=== PATIENT | female | born 1980 | race American Indian/Alaskan Native ===

== ENCOUNTER 2016-10-17 15:17 | Emergency (ER) | payer MEDICAID ==
[2016-10-17 15:56] VITALS: BP 114/68
[2016-10-17 16:18] LABS: Basophils % (Auto) 0.2 % (0.0-1.8); Eosinophils % (Auto) 0.3 % (0.0-4.3); Hematocrit 32.6 % (30.3-42.9); Hemoglobin 10.7 gm/dl (10.1-14.3); Mean Corpuscular HGB Conc 33 % (30-34); Mean Corpuscular Hemoglobin 26 pg (28-32); Mean Corpuscular Volume 80 fl (79-97); Platelet Count 262 K/mm3 (140-440); Red Blood Count 4.07 M/mm3 (3.65-5.03); Red Cell Distribution Width 16.2 % (13.2-15.2); White Blood Count 9.6 K/mm3 (4.5-11.0)
[2016-10-17 16:30] LABS: Anion Gap 19 mmol/L; BUN/Creatinine Ratio 16.66; Blood Urea Nitrogen 10 mg/dL (7-17); Calcium 9.2 mg/dL (8.4-10.2); Carbon Dioxide 19 mmol/L (22-30); Chloride 101.4 mmol/L (98-107); Glucose 128 mg/dL (65-100); Potassium 3.3 mmol/L (3.6-5.0); Sodium 136 mmol/L (137-145)
--- NOTE | 2016-10-17 16:45 | Emergency Department Report ---
Entered by BAILEY DIAZ, acting as scribe for BALAJI VEGAS NP. Chief Complaint: Nausea/Vomiting/Diarrhea Stated Complaint: DEHYDRATED Time Seen by Provider: 10/17/16 16:18 - HPI History of Present Illness: 13.5 weeks patient is non-toxic, non ill appearing, in no acute distress with c/o N/V and weakness. Her last OB appointment was last week, and was told her urine was dark and concentrated. She states her baby was fine at her last OB appointment. Patient has been taking zofran during day time and phenergan at night with no relief. Patient reports that she can't keep liquids down. Patient has similar symptoms with first , but worse this . reports cramping pelvic pain denies vaginal bleeding - ROS Review of Systems: Patient reports nausea and vomiting. Reports cramping pelvic pain Patient denies chest pain and SOB. Patient denies vaginal bleeding - Exam Vital Signs: Vital Signs 10/17/16 15:49 Temperature 99 F Pulse Rate 95 H Respiratory 18 Rate Blood Pressure 114/68 O2 Sat by Pulse 100 Oximetry Physical Exam: Constitutional: Non toxic appearing, NAD. Cardiovascular: Normal rate and rhythm with normal S1/S2 sounds. Respiratory: No respiratory distress. Lung sounds clear to auscultation bilaterally. Abdomen: Abdomen is non-distended, soft with no tenderness to palpation in all quadrants. No abdominal bruit. No epigastric pain. Negative [place] Tenderness. Negative [place] sign. MSE screening note: Focused history and physical exam performed. Due to findings the following was ordered: CBC, BMP, HCG qualitative, US OB and transvaginal, UA, was ordered for patient prior to my visit. ED Medical Decision Making - Lab Data Result diagrams: 10/17/16 16:02 10/17/16 16:02 ED Disposition for MSE Condition: Stable This documentation as recorded by the scribe,BAILEY DIAZ,accurately reflects the service I personally performed and the decisions made by me,BALAJI VEGAS, MARCIE.
[2016-10-17 17:34] LABS: Bilirubin,Urine NEG (Negative); Blood,Urine NEG (Negative); Ketones,Urine 20 mg/dL (Negative); Leukocyte Esterase,Urine NEG (Negative); Mucus,Urine 3+ /HPF; Nitrite,Urine NEG (Negative); Urobilinogen,Urine < 2.0 mg/dL (<2.0)
--- NOTE | 2016-10-17 19:54 | Ultrasound Report ---
FINAL REPORT PROCEDURE: US OB \T\lt; = 14 WEEKS FETUS TECHNIQUE: Real-time transabdominal sonography of the uterus, placenta, amniotic fluid, adnexa, and fetus was performed with image documentation. Measurements were obtained to determine age/size. M-mode Doppler was used to document heartbeat. CPT 85348 HISTORY: n/v cramping COMPARISON: No prior studies are available for comparison. FINDINGS: There is a single living intrauterine gestation with a heart rate of 160 beats per minute. The amount of amniotic fluid appears normal. Shape of the gestational sac appears normal. No evidence of subchorionic hemorrhage. [place]-rump length measurement is 7 centimeters corresponding to an age of 13 weeks 1 day. Biparietal diameter 2.3 centimeter equals 13 weeks 6 days Head circumference 9.4 centimeter equal 14 week 2 day Abdominal circumference 7.8 centimeter equal 14 week 1 day Placenta appears to be forming anteriorly without evidence of abruption. Fetus currently too small to accurately assess anatomy. No gross abnormality is seen. The amount of amniotic fluid appears normal. No free fluid is seen in the cul-de-sac. Right and left ovaries are unremarkable. No abnormal adnexal masses are identified. Right ovary measures 2.4 x 1.3 x 0.7 centimeters. The left ovary measures 2.0 x 1.0 x 1.8 centimeters. IMPRESSION: Single living intrauterine gestation visualized. By average sonographic measurements the estimated age is 13 weeks 6 days. This places the EDC at 04/18/2017 1.5 weeks. Fetus currently too small accurately assess anatomy. No gross abnormality is seen. Consider follow-up exam at 18-20 weeks to evaluate anatomy. Ovaries are visualized and show no abnormalities.
--- NOTE | 2016-10-22 16:37 | ED Elopement Review ---
ED Pt Elopement review - Results review Lab results: Laboratory Tests 10/17/16 10/17/16 10/17/16 16:02 16:02 16:02 WBC 9.6 RBC 4.07 Hgb 10.7 Hct 32.6 MCV 80 MCH 26 L MCHC 33 RDW 16.2 H Plt Count 262 Lymph % (Auto) 17.4 [place] % (Auto) 6.1 Eos % (Auto) 0.3 Baso % (Auto) 0.2 Lymph # 1.7 [place] # 0.6 Eos # 0.0 Baso # 0.0 Seg Neutrophils % 76.0 H Seg Neutrophils # 7.3 Sodium 136 L Potassium 3.3 L Chloride 101.4 Carbon Dioxide 19 L Anion Gap 19 BUN 10 Creatinine 0.6 L Estimated GFR > 60 BUN/Creatinine Ratio 16.66 Glucose 128 H Calcium 9.2 HCG, Quant 70699 H Urine Color Urine Turbidity Urine pH Ur Specific [place] Urine Protein Urine Glucose (UA) Urine Ketones Urine Blood Urine Nitrite Urine Bilirubin Urine Urobilinogen Ur Leukocyte Esterase Urine WBC (Auto) Urine RBC (Auto) U Epithel Cells (Auto) Urine Mucus 10/17/16 16:33 WBC RBC Hgb Hct MCV MCH MCHC RDW Plt Count Lymph % (Auto) [place] % (Auto) Eos % (Auto) Baso % (Auto) Lymph # [place] # Eos # Baso # Seg Neutrophils % Seg Neutrophils # Sodium Potassium Chloride Carbon Dioxide Anion Gap BUN Creatinine Estimated GFR BUN/Creatinine Ratio Glucose Calcium HCG, Quant Urine Color Yellow Urine Turbidity Clear Urine pH 5.0 Ur Specific [place] 1.036 H Urine Protein 30 mg/dl Urine Glucose (UA) 150 Urine Ketones 20 Urine Blood Neg Urine Nitrite Neg Urine Bilirubin Neg Urine Urobilinogen < 2.0 Ur Leukocyte Esterase Neg Urine WBC (Auto) 1.0 Urine RBC (Auto) 7.0 U Epithel Cells (Auto) 1.0 Urine Mucus 3+ hypokalemia, ua - dehydration - Call Back decision Pt Call Back Decision: Call pt to return to ED [facility]
== END 2016-10-18 00:04 | disposition left against medical advice (07) ==
LOC: ED 15:17
DX: O21.9 Vomiting of pregnancy, unspecified (principal); O26.891 Other specified pregnancy related conditions, first trimester; R53.1 Weakness; R11.0 Nausea; Z53.21 Procedure and treatment not carried out due to patient leaving prior to being seen by health care provider
CPT/HCPCS: 36415; 76801; 80048; 81001; 84702; 85025

== ENCOUNTER 2016-10-18 10:16 | Inpatient (IN) | payer MEDICAID ==
[2016-10-18] MEDS ORDERED: ZOFRAN IV PRN (10:23)
[2016-10-18] MEDS: PHENERGAN PR SCH ×3 (12:55→23:26)
[2016-10-18] MEDS: REGLAN IV SCH ×3 (12:55→23:25)
[2016-10-18] MEDS: D5LR 1,000 ML IV SCH ×3 (12:57→20:17)
--- NOTE | 2016-10-18 13:24 | History and Physical Report ---
<GONZALO SPICER Shanice - Last Filed: 10/18/16 13:20> History of Present Illness Date of examination: 10/18/16 Date of admission: 10/18/16 12:03 Chief complaint: hyperemesis, 11lb weight loss History of present illness: EDC Calculations by LMP: 04/22/2017 Past History : 2 Term Births: 1 Premature Births: 0 Living Children: 1 Para: 1 Prev : 1 Aborta: 0 Elect. Ab: 0 Spont. Ab: 0 Ectopics: 0 # 1 Delivery date: 07/2012 Weeks Gestation: term Delivery type: Anesthesia type: epidural Delivery location: [facility] Infant Sex: Male weight: 7-13 Comments: distress Risk Factors: Smoked Tobacco Use: Never smoker Smokeless Tobacco Use: Never Passive smoke exposure: no Drug use: no HIV high-risk behavior: low risk Caffeine use: 0 drinks per day Alcohol use: no Exercise: yes Seatbelt use: preg-employment counselor % Dietary Counseling: pn yes Past Medical History: Reviewed history from 01/04/2012 and no changes required: Negative Past Medical History Past Surgical History: Reviewed history from 11/06/2012 and no changes required: Lumpectomy--right breast benign Past Medical History Abnormal PAP: negative Social Hx: Patient is no e/t/d Infection History Hx of STD: none HIV Risk Eval: low risk Hepatitis B Risk Eval: low risk Personal hx. of genital herpes: no Partner hx. of genital herpes: no Rash, Viral, or Febrile illness since last LMP? no Varicella/Chicken Pox Status: Previous Disease Genetic History Congenital Heart Defect: Mom: no Dad: no Elton Disease: Mom: no Dad: no Thalassemia Mom: no Dad: no Neural Tube Defect Mom: no Dad: no Down's Syndrome Mom: no Dad: no Cortez-Sachs Mom: no Dad: no Sickle Cell Disease/Trait Mom: no Dad: no Hemophilia Mom: no Dad: no Muscular Dystrophy Mom: no Dad: no Cystic Fibrosis Mom: no Dad: no Jenny Chorea Mom: no Dad: no Mental Retardation Mom: no Dad: no Fragile X Mom: no Dad: no Other Genetic/Chromosomal Disorder Mom: no Dad: no Child w/other defect Mom: no Dad: no Enviromental Exposures Xray Exposure: no Medication, drug, or alcohol use since LMP: no Chemical/Other Exposure: no Exposure to Cat Liter: no Hx of Parvovirus (Fifth Disease): no Occupational Exposure to Children: none FALSECurrent Allergies: No known allergies Past History - Obstetrical History Expected Date of Delivery: 04/19/17 Actual Gestation: 13 Week(s) 6 Day(s) : 2 Para: 1 Hx # Term Pregnancies: 1 Number of Pregnancies: 0 Spontaneous Abortions: 0 Induced : 0 Number of Living Children: 1 Medications and Allergies Allergies Allergy/AdvReac Type Severity Reaction Status Date / Time No Known Allergies Allergy Unverified 10/17/16 15:49 Active Meds: Active Medications Dextrose/Lactated Ringer's (D5lr) 1,000 mls @ 500 mls/hr IV DIRECT MICHAEL Stop: 10/19/16 12:59 Last Admin: 10/18/16 12:57 Dose: 500 mls/hr Dextrose/Lactated Ringer's (D5lr) 1,000 mls @ 150 mls/hr IV DIRECT MICHAEL Metoclopramide HCl (Reglan) 10 mg IV Q6H [facility] Last Admin: 10/18/16 12:55 Dose: 10 mg Multivitamins/Iron/Calcium ( Vitamin) 1 each PO QDAY MICHAEL Ondansetron HCl (Zofran) 4 mg IV Q6H PRN PRN Reason: N/V unrelieved by Reglan Promethazine HCl (Phenergan) 25 mg [place] Q6H MICHAEL Last Admin: 10/18/16 12:55 Dose: 25 mg Review of Systems All systems: negative Constitutional: weight loss, weakness Cardiovascular: no chest pain Respiratory: no cough Gastrointestinal: nausea, vomiting, no abdominal pain - Physical Exam Breasts: Positive: normal Cardiovascular: Regular rate Lungs: Positive: Clear to auscultation, Normal air movement Abdomen: Positive: normal appearance, soft Genitourinary (Female): Positive: normal external genitalia Extremities: Positive: normal - Obstetrical FHR: auscultation normal FHR comments: Doppler in office 160's Results All other labs normal. Assessment and Plan 36y/o @ 13.6 wga admitted for hyperemesis. patient unable to tolerate food or liquids even with phenergan and zofran otd. 11lb weight loss since beginning or . Plan to admit for hyperemesis pathway, - Patient Problems (1) Hyperemesis Current Visit: Yes Status: Acute QualifierTitle: Vomiting type: V Nausea presence: with nausea Plan to address problem: hyperemesis pathway (2) 13 weeks gestation of Current Visit: Yes Status: Acute (3) Previous section Current Visit: Yes Status: Acute <AUBRIE CARBAJAL D - Last Filed: 10/18/16 20:44> History of Present Illness Date of admission: 10/18/16 12:03 Medications and Allergies Active Meds: Active Medications Dextrose/Lactated Ringer's (D5lr) 1,000 mls @ 500 mls/hr IV DIRECT MICHAEL Stop: 10/19/16 12:59 Last Admin: 10/18/16 15:16 Dose: 500 mls/hr Dextrose/Lactated Ringer's (D5lr) 1,000 mls @ 150 mls/hr IV DIRECT MICHAEL Last Admin: 10/18/16 20:17 Dose: 150 mls/hr Metoclopramide HCl (Reglan) 10 mg IV Q6H MICHAEL Last Admin: 10/18/16 18:20 Dose: 10 mg Multivitamins/Iron/Calcium ( Vitamin) 1 each PO QDAY MICHAEL Ondansetron HCl (Zofran) 4 mg IV Q6H PRN PRN Reason: N/V unrelieved by Reglan Promethazine HCl (Phenergan) 25 mg [place] Q6H MICHAEL Last Admin: 10/18/16 18:20 Dose: 25 mg - Vital Signs Vital signs: Vital Signs Temp Pulse Resp BP 99 F 72 18 97/53 10/18/16 12:45 10/18/16 12:45 10/18/16 12:45 10/18/16 12:45 Temp Pulse Resp BP Pulse Ox 99.2 F 80 18 99/50 10/18/16 16:55 10/18/16 16:55 10/18/16 16:55 10/18/16 16:55 Results Result Diagrams: 10/18/16 12:55 Abnormal lab results 10/18/16 Range/Units 12:55 Carbon Dioxide 20 L (22-30) mmol/L Creatinine 0.6 L (0.7-1.2) mg/dL All other labs normal. Assessment and Plan - Patient Problems (1) Hyperemesis Current Visit: Yes Status: Acute Qualifiers: Vomiting type: V Nausea presence: with nausea Plan to address problem: Continue hyperemesis pathway
[2016-10-18 13:28] LABS: Anion Gap 20 mmol/L; BUN/Creatinine Ratio 16.66; Blood Urea Nitrogen 10 mg/dL (7-17); Carbon Dioxide 20 mmol/L (22-30); Chloride 103.1 mmol/L (98-107); Glucose 81 mg/dL (65-100); Potassium 3.9 mmol/L (3.6-5.0); Sodium 139 mmol/L (137-145)
--- NOTE | 2016-10-18 13:29 | Admit Criteria Form ---
Admission Criteria Documentation: HYPEREMESIS GRAVIDARUM Clinical Indications for Admission to Inpatient Care ( Place 'X' for any and all applicable criteria): Admission is indicated for ANY ONE of the following (1)(2)(3) [ ]I. Suspected serious gastrointestinal pathology (eg, acute fatty liver of , pancreatitis) as indicated by ANY ONE of the following (5)(6): [ ]a) Significantly elevated serum transaminase or bilirubin (eg, 2 or 3 times normal) [ ]b) Elevated serum amylase or lipase [ ]c) Elevated serum ammonia level [ ]d) Coagulopathy (eg, elevated PT, PTT) [ ]e) Ascites [ ]f) Encephalopathy [X ]II. Inpatient admission required rather than observation care (Also use Hyperemesis Gravidarum: Observation Care as appropriate) because of ANY ONE of the following (7) : [ ]a) Hemodynamic instability develops [X ]b) Vomiting that is severe or persistent [ ]c) Severe electrolyte abnormalities requiring inpatient care [ ]d) Metabolic disorder (eg, acidosis) that is severe or persistent [ ]e) Acute renal failure [ ]f) Altered mental status or medication side effects (eg, antiemetics) that are severe or persistent [ ]g) compromise identified [ ]h) Hydatidiform mole identified [ ]i) IV fluid to replace significant ongoing (eg, for over 24 hrs) losses (> 3 L/m2 per day) [ ]j) Parenteral nutrition regimen that must be implemented on inpatient basis [ ]k) Other condition, treatment or monitoring requiring inpatient admission Extended stay beyond goal length of stay may be needed for(2)(13): [ ]a) Severe electrolyte disorder that persists [ ]b) Severe malnutrition [ ]c) Acute fatty liver of [ ]d) Hydatidiform mole [ ]e) Wernicke encephalopathy or other DIGESTER [employer]PER complication (eg, osmotic demyelination syndrome) [ ]f) compromise The original [employer] content created by [employer] has been revised. The portions of the content which have been revised are identified through the use of italic text or in bold, and [facility] has neither reviewed nor approved the modified material. All other unmodified content is copyright [facility]. Please see references footnoted in the original [facility] edition 2016 Admission Criteria Met: Yes
[2016-10-18 17:58] LABS: Bilirubin,Urine NEG (Negative); Blood,Urine NEG (Negative); Ketones,Urine 80 mg/dL (Negative); Leukocyte Esterase,Urine NEG (Negative); Mucus,Urine 3+ /HPF; Nitrite,Urine NEG (Negative); Urobilinogen,Urine < 2.0 mg/dL (<2.0)
[2016-10-19] MEDS: D5LR 1,000 ML IV SCH ×2 (02:54→11:00)
[2016-10-19] MEDS: REGLAN IV SCH ×3 (06:04→17:37)
[2016-10-19] MEDS: PHENERGAN PR SCH ×3 (06:05→17:37)
--- NOTE | 2016-10-19 08:28 | Progress Note ---
Assessment and Plan patient doing well, no complaints of nausea or vomiting this morning. denies cramping or bleeding. Tolerating clear liquids, advance diet as tolerated. Continue current management. - Patient Problems (1) Hyperemesis Current Visit: Yes Status: Acute Qualifiers: Vomiting type: V Nausea presence: with nausea (2) 13 weeks gestation of Current Visit: Yes Status: Resolved (3) Previous section Current Visit: Yes Status: Acute (4) 14 weeks gestation of Current Visit: Yes Status: Acute Subjective - Subjective Date of service: 10/19/16 Principal diagnosis: 14wks, hyperemesis Interval history: EDC Calculations by LMP: 04/22/2017 Past History : 2 Term Births: 1 Premature Births: 0 Living Children: 1 Para: 1 Prev : 1 Aborta: 0 Elect. Ab: 0 Spont. Ab: 0 Ectopics: 0 # 1 Delivery date: 07/2012 Weeks Gestation: term Delivery type: Anesthesia type: epidural Delivery location: [facility] Infant Sex: Male weight: 7-13 Comments: distress Risk Factors: Smoked Tobacco Use: Never smoker Smokeless Tobacco Use: Never Passive smoke exposure: no Drug use: no HIV high-risk behavior: low risk Caffeine use: 0 drinks per day Alcohol use: no Exercise: yes Seatbelt use: preg-relationship counselor % Dietary Counseling: pn yes Past Medical History: Reviewed history from 01/04/2012 and no changes required: Negative Past Medical History Past Surgical History: Reviewed history from 11/06/2012 and no changes required: Lumpectomy--right breast benign Past Medical History Abnormal PAP: negative Social Hx: Patient is no e/t/d Infection History Hx of STD: none HIV Risk Eval: low risk Hepatitis B Risk Eval: low risk Personal hx. of genital herpes: no Partner hx. of genital herpes: no Rash, Viral, or Febrile illness since last LMP? no Varicella/Chicken Pox Status: Previous Disease Genetic History Congenital Heart Defect: Mom: no Dad: no Elton Disease: Mom: no Dad: no Thalassemia Mom: no Dad: no Neural Tube Defect Mom: no Dad: no Down's Syndrome Mom: no Dad: no Cortez-Sachs Mom: no Dad: no Sickle Cell Disease/Trait Mom: no Dad: no Hemophilia Mom: no Dad: no Muscular Dystrophy Mom: no Dad: no Cystic Fibrosis Mom: no Dad: no Leon Chorea Mom: no Dad: no Mental Retardation Mom: no Dad: no Fragile X Mom: no Dad: no Other Genetic/Chromosomal Disorder Mom: no Dad: no Child w/other defect Mom: no Dad: no Enviromental Exposures Xray Exposure: no Medication, drug, or alcohol use since LMP: no Chemical/Other Exposure: no Exposure to Cat Liter: no Hx of Parvovirus (Fifth Disease): no Occupational Exposure to Children: none FALSECurrent Allergies: No known allergies Patient reports: other (pt states "I feel better", tolderating clear liquids without emesis), no new complaints Objective - Vital Signs Vital Signs: Vital Signs - 12hr 10/18/16 10/18/16 10/19/16 22:14 23:30 01:15 Temperature 99.2 F 99.2 F 98.7 F Pulse Rate [ 65 70 66 Left] Respiratory 20 20 18 Rate Blood Pressure 100/55 95/54 96/54 [Left Arm] 10/19/16 10/19/16 03:12 05:57 Temperature 98.1 F 98.7 F Pulse Rate [ 67 66 Left] Respiratory 20 20 Rate Blood Pressure 94/51 95/50 [Left Arm] - Exam Breasts: normal Cardiovascular: Regular rate Lungs: Clear to auscultation, Normal air movement Abdomen: Present: normal appearance, soft Extremities: normal Deep Tendon Reflex Grade: Normal +2 - Labs Labs: Abnormal Labs 10/18/16 12:55 Carbon Dioxide 20 L Creatinine 0.6 L Laboratory Results - last 24 hr 10/18/16 10/18/16 12:55 17:00 Sodium 139 Potassium 3.9 Chloride 103.1 Carbon Dioxide 20 L Anion Gap 20 BUN 10 Creatinine 0.6 L Estimated GFR > 60 BUN/Creatinine Ratio 16.66 Glucose 81 Calcium 9.0 Urine Color Yellow Urine Turbidity Clear Urine pH 6.0 Ur Specific [place] 1.030 Urine Protein 30 mg/dl Urine Glucose (UA) >=500 Urine Ketones 80 Urine Blood Neg Urine Nitrite Neg Urine Bilirubin Neg Urine Urobilinogen < 2.0 Ur Leukocyte Esterase Neg Urine WBC (Auto) 2.0 Urine RBC (Auto) 8.0 U Epithel Cells (Auto) 6.0 Urine Mucus 3+
[2016-10-19] MEDS ORDERED: PRENATAL VITAMIN PO SCH (10:00)
[2016-10-20] MEDS: REGLAN IV SCH ×2 (00:06→05:34)
[2016-10-20] MEDS: PHENERGAN PR SCH ×2 (00:06→05:34)
--- NOTE | 2016-10-20 05:52 | Discharge Summary ---
Providers - Providers Date of Admission: 10/18/16 12:03 Date of discharge: 10/20/16 (pt agrees with d/c ) Attending physician: AUBRIE CARBAJAL Primary care physician: LICENSING COORDINATOR Hospitalization Reason for admission: hyperemisis Condition: Good Disposition: DC-01 TO HOME OR SELFCARE - Discharge Diagnoses (1) Hyperemesis Status: Acute Qualifiers: Vomiting type: V Nausea presence: with nausea Comment: rx for phenergan supp and po zofran RTO November 04 for PNvisit Core Measure Documentation - Palliative Care Palliative Care/ Comfort Measures: Not Applicable - Core Measures Any of the following diagnoses?: none - VTE Discharge Requirements Deep Vein Thrombosis/Pulmonary Embolism Present on Admission: No Has pt received <5 days of overlap therapy or INR<2.0: No Anticoagulant overlap therapy prescribed at discharge: No Contraindication No Overlap Therapy order at DC: Not Indicated - Acute CA Discharge Requirements Aspirin at discharge: No Reason for no aspirin on DC: Medical contraindication GIUSEPPE/ARB for LVSD if EF <40%: Not Applicable Reason for no GIUSEPPE/ARB: Medical contraindication Beta neil at discharge: No Reason for no beta neil on DC: Medical contraindication Statin for LDL = or >100 mg/dl on DC: Not Applicable Reason for no statin on DC: Statins contraindicated - Heart Failure Discharge Requirements GIUSEPPE/ARB for LVSD if EF <40%: Not Applicable Reason for no GIUSEPPE/ARB: Medical contraindication Beta neil at discharge: No Reason for no beta neil on DC: Medical contraindication - Stroke Discharge Requirements Statin for LDL = or >70 mg/dl on DC: Not Applicable Reason for no statin on DC: Not Indicated Anticoag for atrial fib/atrial flutter: Not Applicable Reason for no anticoag for AF/F on DC: Not Indicated Antithrombotic for ischemic stroke: No Reason for no antithrombotic on DC: Not Indicated Exam - Constitutional Vitals: Temp Pulse Resp BP Pulse Ox 98.6 F 76 20 106/62 10/20/16 04:10 10/20/16 04:10 10/20/16 04:10 10/20/16 04:10 General appearance: Present: no acute distress, well-nourished - EENT Eyes: Present: PERRL ENT: hearing intact - Neck Neck: Present: supple, normal ROM - Respiratory Respiratory effort: normal - Cardiovascular Rhythm: regular - Extremities Extremities: no ischemia, No edema, Full ROM Peripheral Pulses: within normal limits - Abdominal General gastrointestinal: Present: deferred Female genitourinary: Present: normal - Rectal Rectal Exam: deferred - Integumentary Integumentary: Present: clear, warm, dry - Musculoskeletal Musculoskeletal: strength equal bilaterally - Psychiatric Psychiatric: appropriate mood/affect - Neurologic Neurologic: gait normal Plan Activity: no restrictions Weight Bearing Status: Full Weight Bearing Diet: low fat, advance as tolerated Follow up with: PRIMARY CARE, [Primary Care Provider] - 7 Days MITUL DON CNM [Advanced Practice Nurse] - 11/04/16 (Please call [phone] with any concerns. Take medications as instructed. HYDRATION - 6-8 glasses of water daily Keep scheduled appointment.) Prescriptions: Ondansetron [Zofran TAB] 8 mg PO Q8HR PRN #20 tablet PRN Reason: Nausea Promethazine [Phenergan SUPPOS] 25 mg [place] QHS PRN #20 supp.rect PRN Reason: Nausea
[2016-10-20 09:49] VITALS: BP 99/51
== END 2016-10-20 13:30 | disposition home or self-care (01) | DRG 781 ==
LOC: 3A 10:16 → UNDOADMIN 10:16 → OB 12:03
PROVIDERS: ADMIT Obstetrics & Gynecology; ATTEND Obstetrics & Gynecology
DX: O21.0 Mild hyperemesis gravidarum (principal); Z3A.13 13 weeks gestation of pregnancy
CPT/HCPCS: 36415; 80048; 81001; 82010; J2765; J7121

== ENCOUNTER 2016-11-08 09:47 | Inpatient (IN) | payer MEDICAID ==
[2016-11-08] MEDS ORDERED: ZOFRAN IV PRN (09:54)
--- NOTE | 2016-11-08 10:05 | History and Physical Report ---
History of Present Illness Date of examination: 11/08/16 Date of admission: 11/08/16 Chief complaint: n/v History of present illness: Pt presents with n/v and states she has not been able to eat and not vomit since yesterday. She was seen in the office and was rx'd zantac and had relief of n/v for two days. She was given rx for pepcid for which she took one does in addition to n/v meds she is on and had no change in sx yesterday or today. Pt being readmitted for hyperemesis. This is second admission this . Past History : 2 Term Births: 1 Premature Births: 0 Living Children: 1 Para: 1 Prev : 1 Aborta: 0 Elect. Ab: 0 Spont. 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 of genital herpes: no Partner hx. of genital herpes: no Rash, Viral, or Febrile illness since last LMP? no Varicella/Chicken Pox Status: Previous Disease Genetic History Congenital Heart Defect: Mom: no Dad: no Elton Disease: Mom: no Dad: no Thalassemia Mom: no Dad: no Neural Tube Defect Mom: no Dad: no Down's Syndrome Mom: no Dad: no Cortez-Sachs Mom: no Dad: no Sickle Cell Disease/Trait Mom: no Dad: no Hemophilia Mom: no Dad: no Muscular Dystrophy Mom: no Dad: no Cystic Fibrosis Mom: no Dad: no [place] Chorea Mom: no Dad: no Mental Retardation Mom: no Dad: no Fragile X Mom: no Dad: no Other Genetic/Chromosomal Disorder Mom: no Dad: no Child w/other defect Mom: no Dad: no Enviromental Exposures Xray Exposure: no Medication, drug, or alcohol use since LMP: no Chemical/Other Exposure: no Exposure to Cat Liter: no Hx of Parvovirus (Fifth Disease): no Occupational Exposure to Children: none FALSECurrent Allergies: No known allergies Past History Past Medical History: no pertinent history Past Surgical History: section, other (lumpectomy) Social history: no significant social history, - Obstetrical History Expected Date of Delivery: 04/19/17 Actual Gestation: 17 Week(s) 2 Day(s) : 2 Para: 1 Number of Living Children: 1 Medications and Allergies Allergies Allergy/AdvReac Type Severity Reaction Status Date / Time No Known Allergies Allergy Unverified 10/17/16 15:49 Home Medications Medication Instructions Recorded Confirmed Last Taken Type Ondansetron [Zofran TAB] 8 mg PO Q8HR PRN #20 tablet 10/20/16 11/08/16 Unknown Rx Promethazine [Phenergan SUPPOS] 25 mg NH QHS PRN #20 supp.rect 10/20/16 Unknown Rx Active Meds: Active Medications Dextrose/Lactated Ringer's (D5lr) 1,000 mls @ 500 mls/hr IV DIRECT MICHAEL Stop: 11/09/16 11:59 Dextrose/Lactated Ringer's (D5lr) 1,000 mls @ 150 mls/hr IV DIRECT MICHAEL Multivitamins/Minerals 10 ml/ (Dextrose/Lactated Ringer's) 1,010 mls @ 150 mls/ hr IV ONCE ONE Stop: 11/08/16 16:37 Metoclopramide HCl (Reglan) 10 mg IV Q6H MICHAEL Multivitamins/Iron/Calcium ( Vitamin) 1 each PO QDAY MICHAEL Ondansetron HCl (Zofran) 4 mg IV Q6H PRN PRN Reason: N/V unrelieved by Reglan Promethazine HCl (Phenergan) 25 mg NH Q6H MICHAEL - Physical Exam Cardiovascular: Normal S1, Normal S2 Lungs: Positive: Normal air movement Abdomen: Positive: normal appearance, soft. Negative: distention, tenderness, guarding Genitourinary (Female): Positive: other (deferred) Results Result Diagrams: 11/08/16 12:12 11/08/16 12:12 All other labs normal. Assessment and Plan - Patient Problems (1) 17 weeks gestation of Status: Acute (2) Hyperemesis Status: Acute Qualifiers: Vomiting type: V Nausea presence: with nausea Plan to address problem: -admit -hyperemesis pathway
[2016-11-08] MEDS ORDERED: INFUVITE 10 ML in D5LR 1,000 ML IV ONE (12:00)
[2016-11-08 12:44] LABS: Basophils % (Auto) 0.4 % (0.0-1.8); Eosinophils % (Auto) 0.1 % (0.0-4.3); Hematocrit 35.7 % (30.3-42.9); Hemoglobin 11.6 gm/dl (10.1-14.3); Mean Corpuscular HGB Conc 33 % (30-34); Mean Corpuscular Hemoglobin 26 pg (28-32); Mean Corpuscular Volume 80 fl (79-97); Platelet Count 331 K/mm3 (140-440); Red Blood Count 4.45 M/mm3 (3.65-5.03); Red Cell Distribution Width 15.8 % (13.2-15.2); White Blood Count 10.7 K/mm3 (4.5-11.0)
[2016-11-08 13:07] LABS: Amylase 83 units/L (27-131); Anion Gap 28 mmol/L; Blood Urea Nitrogen 12 mg/dL (7-17); Calcium 9.7 mg/dL (8.4-10.2); Carbon Dioxide 13 mmol/L (22-30); Chloride 99.4 mmol/L (98-107); Glucose 86 mg/dL (65-100); Lipase 27 units/L (13-60); Potassium 3.8 mmol/L (3.6-5.0); Sodium 137 mmol/L (137-145)
--- NOTE | 2016-11-08 14:14 | Admit Criteria Form ---
Admission Criteria Documentation: HYPEREMESIS GRAVIDARUM Clinical Indications for Admission to Inpatient Care ([place]/check or initial the applicable condition/criteria) Admission is indicated for 1 or more of the following 1)(2)(3)(4)(5) [ ]I. Suspected serious gastrointestinal pathology (eg, acute fatty liver of , pancreatitis) as indicated by 1 or more of the following (6)(7): [ ]a) Significantly elevated serum transaminase or bilirubin (e.g., greater than 10 times normal) [ ]b) Significantly elevated bilirubin (eg greater than 4mg/dL (68 micromoles/L) [ ]c) Significantly elevated serum amylase or lipase (eg greater than 5 times normal) [ ]d) Elevated serum ammonia level [ ]e) Coagulopathy (e.g., elevated PT, PTT) [ ]f) Ascites [ ]g) Encephalopathy [X ]II. Inpatient admission required [A] rather than observation care (See use Hyperemesis Gravidarum: Observation Care as appropriate) because of 1 or more of the following (4)(5)(8): [ ]a) Hemodynamic instability [ ]b) Vomiting that is severe or persistent [ ]c) Dehydration that is severe or persistent [ ]d) Severe electrolyte abnormalities requiring inpatient care [ ]e) Metabolic disorder (e.g., hyperchloremic alkalosis) that is severe or persistent [ ]f) Acute renal failure [ ]g) Significant neurologic findings (e.g., ataxia, nysthagmus, Altered mental status that is severe or persistent) [ ]h) compromise identified [ ]i) Hydatidiformmole identified [ X]j) Other condition, treatment or monitoring requiring inpatient admission Extended stay beyond goal length of stay may be needed for(1)(20): [ ]a) Severe electrolyte disorder that persists [ ]b) Malnutrition(10) [ ]c) Acute fatty liver of (6)(7) [ ]d) Hydatidiform mole (2) [ ]e) Wernicke encephalopathy or other CHILD CARE DEVELOPMENT SPECIALIST complication (eg, osmotic demyelination syndrome)(2)(10)(21) [ ]f) compromise The original [employer] content created by [employer] has been revised. The portions of the content which have been revised are identified through the use of italic text or in bold, and [facility] has neither reviewed nor approved the modified material. All other unmodified content is copyright [facility]. Please see references footnoted in the original [facility] edition 2017 Admission Criteria Met: Yes
[2016-11-08] MEDS: REGLAN IV SCH ×2 (15:19→21:11)
[2016-11-08] MEDS: PHENERGAN PR SCH (17:37)
[2016-11-08 19:20] LABS: Bilirubin,Urine NEG (Negative); Blood,Urine NEG (Negative); Ketones,Urine 80 mg/dL (Negative); Leukocyte Esterase,Urine NEG (Negative); Mucus,Urine 3+ /HPF; Nitrite,Urine NEG (Negative); Urobilinogen,Urine < 2.0 mg/dL (<2.0)
[2016-11-08] MEDS: D5LR 1,000 ML IV SCH ×2 (20:00→21:51)
[2016-11-09] MEDS: D5LR 1,000 ML IV SCH ×5 (00:01→22:20)
[2016-11-09] MEDS: PHENERGAN PR SCH ×4 (04:52→16:32)
[2016-11-09] MEDS: REGLAN IV SCH ×3 (04:52→16:28)
--- NOTE | 2016-11-09 08:16 | Progress Note ---
Assessment and Plan patient doing well, no nausea/vomiting since last night. tolerating clear liquids. reports IV reglan is helping. Order for case management to set up home health/reglan pump. Continue hyperemesis pathway. - Patient Problems (1) 17 weeks gestation of Current Visit: Yes Status: Acute (2) Hyperemesis Current Visit: No Status: Acute Qualifiers: Vomiting type: V Nausea presence: with nausea Plan to address problem: case management to assist with setting up home health for reglan pump Subjective - Subjective Date of service: 11/09/16 Principal diagnosis: 17wk; hyperemesis Patient reports: no new complaints, no loss of fluid, no vaginal bleeding, no contractions Objective - Vital Signs Vital Signs: Vital Signs - 12hr 11/09/16 11/09/16 00:00 04:15 Temperature 99.1 F 98.4 F Pulse Rate [ 89 66 Left Radial] Respiratory 20 20 Rate Blood Pressure 99/50 112/63 [Left Arm] - Exam Breasts: deferred Cardiovascular: Regular rate Lungs: Clear to auscultation, Normal air movement Abdomen: Present: normal appearance, soft, normal bowel sounds Extremities: normal Deep Tendon Reflex Grade: Normal +2 - Labs Labs: Abnormal Labs 11/08/16 11/08/16 11/08/16 12:12 12:12 18:52 MCH 26 L RDW 15.8 H Seg Neutrophils % 76.2 H Seg Neutrophils # 8.1 H Carbon Dioxide 13 L Creatinine 0.6 L Ur Specific [place] 1.036 H U Epithel Cells (Auto) 21.0 H Laboratory Results - last 24 hr 11/08/16 11/08/16 11/08/16 12:12 12:12 12:12 WBC 10.7 RBC 4.45 Hgb 11.6 Hct 35.7 MCV 80 MCH 26 L MCHC 33 RDW 15.8 H Plt Count 331 Lymph % (Auto) 16.4 [place] % (Auto) 6.9 Eos % (Auto) 0.1 Baso % (Auto) 0.4 Lymph # 1.8 [place] # 0.7 Eos # 0.0 Baso # 0.0 Seg Neutrophils % 76.2 H Seg Neutrophils # 8.1 H Sodium Potassium Chloride Carbon Dioxide Anion Gap BUN Creatinine Estimated GFR BUN/Creatinine Ratio Glucose Calcium Amylase 83 Lipase 27 TSH 0.808 Urine Color Urine Turbidity Urine pH Ur Specific [place] Urine Protein Urine Glucose (UA) Urine Ketones Urine Blood Urine Nitrite Urine Bilirubin Urine Urobilinogen Ur Leukocyte Esterase Urine WBC (Auto) Urine RBC (Auto) U Epithel Cells (Auto) Urine Mucus Hepatitis A IgM Ab Hep Bs Antigen Hep B Core IgM Ab Hepatitis C Antibody 11/08/16 11/08/16 11/08/16 12:12 12:12 18:52 WBC RBC Hgb Hct MCV MCH MCHC RDW Plt Count Lymph % (Auto) [place] % (Auto) Eos % (Auto) Baso % (Auto) Lymph # [place] # Eos # Baso # Seg Neutrophils % Seg Neutrophils # Sodium 137 Potassium 3.8 Chloride 99.4 Carbon Dioxide 13 L Anion Gap 28 BUN 12 Creatinine 0.6 L Estimated GFR > 60 BUN/Creatinine Ratio 20.00 Glucose 86 Calcium 9.7 Amylase Lipase TSH Urine Color [place] Urine Turbidity Slightly-cloudy Urine pH 5.0 Ur Specific [place] 1.036 H Urine Protein 30 mg/dl Urine Glucose (UA) Neg Urine Ketones 80 Urine Blood Neg Urine Nitrite Neg Urine Bilirubin Neg Urine Urobilinogen < 2.0 Ur Leukocyte Esterase Neg Urine WBC (Auto) 3.0 Urine RBC (Auto) 15.0 U Epithel Cells (Auto) 21.0 H Urine Mucus 3+ Hepatitis A IgM Ab Non-reactive Hep Bs Antigen Non-reactive Hep B Core IgM Ab Non-reactive Hepatitis C Antibody Non-reactive
[2016-11-09] MEDS: PRENATAL VITAMIN PO SCH (11:02)
[2016-11-10] MEDS: REGLAN IV SCH ×2 (04:08→10:00)
[2016-11-10] MEDS: PHENERGAN PR SCH ×3 (04:08→17:03)
[2016-11-10] MEDS: D5LR 1,000 ML IV SCH (04:10)
--- NOTE | 2016-11-10 07:30 | Discharge Summary ---
Providers - Providers Date of Admission: 11/09/16 07:57 Date of discharge: 11/10/16 (pt anxious to go home) Attending physician: DENISE SANTOS 11/09/16 08:10 Consult to Case Management [CONS] Routine Services Needed at Discharge: Home Health Services Comment:: please assist with setting up reglan pump Primary care physician: DIRECTOR OF FINANCIAL PLANNING Hospitalization Reason for admission: hyperemisis Condition: Good Hospital course: improved condition No vomiting X 24 hours Disposition: DC-01 TO HOME OR SELFCARE Time spent for discharge: 20 minutes Core Measure Documentation - Palliative Care Palliative Care/ Comfort Measures: Not Applicable - Core Measures Any of the following diagnoses?: none - VTE Discharge Requirements Deep Vein Thrombosis/Pulmonary Embolism Present on Admission: No Has pt received <5 days of overlap therapy or INR<2.0: No Anticoagulant overlap therapy prescribed at discharge: No Contraindication No Overlap Therapy order at DC: Not Indicated - Acute MO Discharge Requirements Aspirin at discharge: No Reason for no aspirin on DC: Medical contraindication GIUSEPPE/ARB for LVSD if EF <40%: Not Applicable Beta neil at discharge: No Reason for no beta neil on DC: Medical contraindication Statin for LDL = or >100 mg/dl on DC: Not Applicable - Heart Failure Discharge Requirements GIUSEPPE/ARB for LVSD if EF <40%: Not Applicable Beta neil at discharge: No Reason for no beta neil on DC: Medical contraindication - Stroke Discharge Requirements Statin for LDL = or >70 mg/dl on DC: Not Applicable Reason for no statin on DC: Not Indicated Anticoag for atrial fib/atrial flutter: Not Applicable Reason for no anticoag for AF/F on DC: Not Indicated Antithrombotic for ischemic stroke: No Reason for no antithrombotic on DC: Not Indicated Exam - Constitutional Vitals: Temp Pulse Resp BP Pulse Ox 98.2 F 76 20 116/56 11/10/16 05:20 11/10/16 05:20 11/10/16 05:20 11/10/16 05:20 General appearance: Present: no acute distress, well-nourished - EENT Eyes: Present: PERRL ENT: hearing intact, clear oral mucosa - Neck Neck: Present: supple, normal ROM - Respiratory Respiratory effort: normal Respiratory: bilateral: CTA - Cardiovascular Heart Sounds: Present: S1 & S2. Absent: rub, click - Extremities Extremities: pulses symmetrical, No edema Peripheral Pulses: within normal limits - Abdominal General gastrointestinal: Present: deferred, soft, non-tender, non-distended, normal bowel sounds Female genitourinary: Present: deferred - Rectal Rectal Exam: deferred - Integumentary Integumentary: Present: clear, warm, dry - Musculoskeletal Musculoskeletal: gait normal, strength equal bilaterally - Psychiatric Psychiatric: appropriate mood/affect, intact judgment & insight - Neurologic Neurologic: CNII-XII intact, moves all extremities Plan Activity: no restrictions Weight Bearing Status: Weight Bear as Tolerated Diet: regular, advance as tolerated Follow up with: PRIMARY CARE, [Primary Care Provider] - 7 Days MITUL DON CNM [Advanced Practice Nurse] - 12/02/16 ( Please keep your appointment as scheduled 12-02-16. Advance your diet as tolerated. Hydration as tolerated daily. Take medications as prescribed. Call with concerns)
[2016-11-10] MEDS: PRENATAL VITAMIN PO SCH (10:00)
[2016-11-10 19:04] VITALS: BP 97/57
== END 2016-11-10 18:00 | disposition home or self-care (01) | DRG 781 ==
LOC: UNDOADMIN 09:47 → OB 09:47 → EDSTATUS 10:12 → OB 11:35 → OBSVTOIN 11-09 07:57
PROVIDERS: ADMIT Obstetrics & Gynecology; ATTEND Obstetrics & Gynecology
DX: O21.0 Mild hyperemesis gravidarum (principal); Z3A.17 17 weeks gestation of pregnancy; O34.219 Maternal care for unspecified type scar from previous cesarean delivery
CPT/HCPCS: 36415; 80048; 80074; 81001; 82010; 82150; 83690; 84443; 85025; G0378; G0379; J2405; J2765; J7121

== ENCOUNTER 2017-04-14 05:43 | Inpatient (IN) | payer MEDICAID ==
--- NOTE | 2017-04-13 09:56 | History and Physical Report ---
History of Present Illness Date of examination: 04/12/17 History of present illness: Patient admitted for repeat section. Patient informed the risks of the surgery include bleeding possibly bleeding heavy enough to require blood transfusion, infection possible damage to bowel bladder ureter. Patient understands that due to her previous surgery she is an increased risks of adjacent organ damage. Patient's questions answered. Patient understands and desires to proceed. Patient has been reassessed/reevaluated/re-examined. H&P has been reviewed. No interval changes. Menstrual History Regularity: regular Menses every: 28 days Duration: 5 LMP: 07/16/2016 LMP reliability: definite LMP character: normal test type: urine test Date: 09/16/2016 BC at conception: none Planned ? yes EDC Calculations LMP: 04/22/2017 Past History : 2 Term Births: 1 Premature Births: 0 Living Children: 1 Para: 1 Prev : 1 Aborta: 0 Elect. Ab: 0 Spont. 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 of genital herpes: no Partner hx. of genital herpes: no Rash, Viral, or Febrile illness since last LMP? no Varicella/Chicken Pox Status: Previous Disease Genetic History Congenital Heart Defect: Mom: no Dad: no Elton Disease: Mom: no Dad: no Thalassemia Mom: no Dad: no Neural Tube Defect Mom: no Dad: no Down's Syndrome Mom: no Dad: no Cortez-Sachs Mom: no Dad: no Sickle Cell Disease/Trait Mom: no Dad: no Hemophilia Mom: no Dad: no Muscular Dystrophy Mom: no Dad: no Cystic Fibrosis Mom: no Dad: no [place] Chorea Mom: no Dad: no Mental Retardation Mom: no Dad: no Fragile X Mom: no Dad: no Other Genetic/Chromosomal Disorder Mom: no Dad: no Child w/other defect Mom: no Dad: no Enviromental Exposures Xray Exposure: no Medication, drug, or alcohol use since LMP: no Chemical/Other Exposure: no Exposure to Cat Liter: no Hx of Parvovirus (Fifth Disease): no Occupational Exposure to Children: none FALSECurrent Allergies: No known allergies Laboratory Results Past History Past Medical History: other (See HPI) Past Surgical History: other (See HPI) SUPERINTENDENT HOUSE History: other (See HPI) Family/Genetic History: other (See HPI) Social history: other (See HPI) - Obstetrical History Expected Date of Delivery: 04/22/17 Actual Gestation: 38 Week(s) 6 Day(s) : 2 Para: 1 Hx # Term Pregnancies: 1 Number of Pregnancies: 0 Spontaneous Abortions: 0 Induced : 0 Number of Living Children: 1 Medications and Allergies Allergies Allergy/AdvReac Type Severity Reaction Status Date / Time No Known Allergies Allergy Unverified 10/17/16 15:49 Home Medications Medication Instructions Recorded Confirmed Last Taken Type No Known Home Medications [No 04/14/17 04/14/17 Unknown History Reported Home Medications] - Physical Exam Breasts: Positive: deferred Cardiovascular: Regular rate Lungs: Positive: Normal air movement Abdomen: Positive: normal appearance, soft, other (Keloid scar) Vulva: both: normal Vagina: Positive: normal moisture Uterus: Positive: enlarged Extremities: Positive: edema Results Result Diagrams: 04/14/17 05:55 All other labs normal. Assessment and Plan - Patient Problems (1) Maternal care due to uterine scar from other previous surgery Current Visit: Yes Status: Acute Plan to address problem: Discuss the risks of the surgery including infection, bleeding possibly heavy enough to require a blood transfusion, possible damage to bowel, bladder or ureter. Her questions were answered. Patient understands and desires to proceed (2) Encounter for sterilization Current Visit: Yes Status: Acute Plan to address problem: Patient desires sterilization.Discuss the permanency of sterilization. High risk of regret and 0.5 to 1% risk of failure. Patient understands and desires to proceed. (3) Keloid scar Current Visit: Yes Status: Acute
[~2017-04-14 05:43] MED LIST: BICITRA PO SCH; PEPCID IV SCH; PITOCin/NS 20 UNIT/1000ML DRIP 20 UNITS/1,000 ML BAG IV SCH; REGLAN IV SCH
[2017-04-14] MEDS: LACTATED RINGERS 1,000 ML IV SCH ×2 (05:55→06:30)
[2017-04-14] MEDS ORDERED: ANCEF/STERILE WATER 2 GM/20 ML 2 GM/20 ML SYRINGE IV NR (06:00)
[2017-04-14 06:19] LABS: Basophils % (Auto) 0.7 % (0.0-1.8); Eosinophils % (Auto) 0.2 % (0.0-4.3); Hematocrit 30.1 % (30.3-42.9); Hemoglobin 9.9 gm/dl (10.1-14.3); Mean Corpuscular HGB Conc 33 % (30-34); Mean Corpuscular Volume 76 fl (79-97); Platelet Count 315 K/mm3 (140-440); Red Blood Count 3.93 M/mm3 (3.65-5.03); Red Cell Distribution Width 16.1 % (13.2-15.2); White Blood Count 12.5 K/mm3 (4.5-11.0)
[2017-04-14 06:26] LABS: Mean Corpuscular Hemoglobin 25 pg (28-32)
--- NOTE | 2017-04-14 06:41 | Anesthesia Consultation ---
Anesthesia Consult and Med Hx Date of service: 04/14/17 - Airway Anesthetic Teeth Evaluation: Good ROM Head & Neck: Adequate Mental/Hyoid Distance: Adequate Mallampati Class: Class II Intubation Access Assessment: Probably Good - Pulmonary Exam CTA: Yes - Cardiac Exam Cardiac Exam: RRR - Pre-Operative Health Status ASA Pre-Surgery Classification: ASA2 Proposed Anesthetic Plan: Spinal - Pulmonary Hx Asthma: No COPD: No Hx Pneumonia: No - Cardiovascular System Hx Hypertension: No - Central Nervous System Hx Seizures: No Hx Back Pain: No Hx Psychiatric Problems: No - Endocrine Hx Renal Disease: No Hx End Stage Renal Disease: No Hx Hypothyroidism: No Hx Hyperthyroidism: No - Hematic Hx Anemia: No Hx Sickle Cell Disease: No - Other Systems Hx Alcohol Use: No Hx Cancer: No
--- NOTE | 2017-04-14 06:41 | Anesthesia Day of Surgery ---
Anesthesia Day of Surgery - Day of Surgery Patient Examined: Yes Patient H&P Reviewed: Yes Patient is NPO: Yes
[2017-04-14] MEDS ORDERED: MORPHINE ONE (07:21)
[2017-04-14] MEDS ORDERED: NACL 0.9% IR ONE (07:46)
[2017-04-14] MEDS ORDERED: WATER FOR IRRIG STERILE IR ONE (07:46)
[2017-04-14] MEDS ORDERED: NEO SYNEPHRINE/NS Syringe(OR USE) IV ONE ×2 (07:55→08:01)
[2017-04-14] MEDS ORDERED: ZOFRAN ONE (07:55)
[2017-04-14] MEDS ORDERED: LACTATED RINGERS 1,000 ML ONE (08:49)
--- NOTE | 2017-04-14 08:57 | Operative Report ---
Operative Report Operative Report: Date of procedure: 04/14/2017 Pre-operative diagnosis: Intrauterine at 39 weeks with previous section desires permanent sterilization Post-operative diagnosis: Same Procedure name(s): Repeat low transverse section with bilateral tubal ligation modified Madhav type Surgeon: Justin Walter MD Supervisor Furnace Room: CARMINA Anesthesia: Spinal EBL: 600 mL Complications: None Findings: Patient with a keloid scar from previous . Adhesions between the anterior abdominal wall and anterior uterus. Normal tubes and ovaries bilaterally female infant weight 6 lbs. 5 oz. with Apgars 8 at 1 minute and 9 at 5 minutes. Specimen(s): Portion of the right and left fallopian tubes Procedure: The patient was brought to the operating room. A spinal was placed without any complications. She was then placed in left lateral tilt. Prepped and draped in the usual sterile manner. After testing for adequate anesthesia level, an elliptical incision was made around the keloid scar. In this keloid scar was removed with the underlying tissue.. This incision was taken down to the fascia. The fascia was then nicked in the midline. This incision was extended out laterally with Coffman scissors. The fascia was then sharply and bluntly from the underlying rectus muscles. The rectus muscles were bluntly and sharply . The peritoneum was then entered with the nut sheller machine operator's fingers. This incision was spread vertically with care not to damage the bladder below. The bladder flap was then formed sharply and bluntly with Metzenbaum scissors. The Eleuterio self-retaining tractor was then placed without any difficulty. A transverse incision was made in lower uterine segment. This incision was extended laterally with the operators fingers. The amniotic sac was then entered bluntly with the nut sheller machine operator's fingers. The was delivered from the vertex position. Bulb suction on the mother's abdomen. Cord was double clamped and cut. The infant was then passed to the nursery personnel who were in attendance. The above scores were given by the nursery personnel. The placenta was then bluntly removed. The uterus was then externalized and wiped clean the remaining products. The uterine incision was closed in layers. The first incision was closed in a locking manner using 0 Vicryl. This was followed by imbricating stitch also with 0 Vicryl. Attention was then switched to the patient's fallopian tubes. Each fallopian tube was identified by its fimbriated end. A portion of each tube was grabbed with the Jose Luis clamp approximately 2-3 cm from the cornua. Each loop was double ligated with 0 chromic suture. The loop were cut with Metzenbaum scissors. Each stump was found to be hemostatic and cauterized with the Bovie. Attention was then switched back to the uterine closure. This closure was hemostatic. The bladder flap was copiously irrigated and found to be hemostatic. The pelvis was copiously irrigated and found to be hemostatic. The uterus was then placed back to the patient's abdomen. The retractors were removed. The rectus muscles were inspected and found to be hemostatic. The fascia was then closed in a running manner using 0 Vicryl. This incision was hemostatic irrigation Bovie. The skin was reapproximated with 4-0 Vicryl subcuticularly. The patient tolerated procedure well. Her urine was clear. The infant was admitted to the well baby nursery. The patient was accompanied to recovery room in good condition. Instrument count correct 3.
[2017-04-14] MEDS ORDERED: SODIUM CHLORIDE FLUSH SYRINGE 10 ML IV NR (12:10)
[2017-04-14] MEDS ORDERED: NARCAN 0.4 MG/1 ML IV PRN (12:10)
[2017-04-14] MEDS ORDERED: D5LR 1,000 ML IV SCH (12:10)
[2017-04-14] MEDS ORDERED: MYLICON PO PRN (12:10)
[2017-04-14] MEDS ORDERED: TUCKS PAD TP PRN (12:10)
[2017-04-14] MEDS ORDERED: PITOCin/NS 20 UNIT/1000ML DRIP 20 UNITS/1,000 ML BAG IV SCH (12:10)
[2017-04-14] MEDS ORDERED: ANCEF/NS 1 GM/50 ML 1 GM/50 ML BAG IV SCH (16:00)
[2017-04-14] MEDS: TORADOL IV SCH (17:20)
[2017-04-14] MEDS ORDERED: ZOFRAN IV PRN (18:48)
[2017-04-14] MEDS: ceFAZolin 1 GM in NACL 0.9% 20 ML IV SCH (19:36)
[2017-04-14 20:21] LABS: Hematocrit 26.9 % (30.3-42.9); Hemoglobin 8.5 gm/dl (10.1-14.3)
[2017-04-14] MEDS ORDERED: MILK OF MAGNESIA PO PRN (22:00)
[2017-04-15] MEDS: TORADOL IV SCH ×2 (00:17→05:59)
[2017-04-15] MEDS: ceFAZolin 1 GM in NACL 0.9% 20 ML IV SCH (02:40)
[2017-04-15] MEDS ORDERED: BOOSTRIX IM ONE (06:00)
--- NOTE | 2017-04-15 11:15 | Progress Note ---
Assessment and Plan - Patient Problems (1) Maternal care due to uterine scar from other previous surgery Current Visit: Yes Status: Acute (2) Encounter for sterilization Current Visit: Yes Status: Acute (3) Keloid scar Current Visit: Yes Status: Acute (4) delivery delivered Current Visit: Yes Status: Acute Plan to address problem: Postoperative day #1. Patient without nausea vomiting. Patient tolerating advancing diet well Patient without fever. Will ambulate in halls. We will continue routine postoperative care. is doing well. Will continue routine post operative care. Patient's postoperative hematocrit is 26.9% Subjective Date of service: 04/15/17 Patient Reports: Positive: feels better, still having pain, pain is less, tolerating liquids well, flatus, afebrile. Negative: nausea Objective Vital Signs - 12hr 04/14/17 04/15/17 23:15 04:25 Temperature 98.4 F 98.0 F Pulse Rate 75 73 Respiratory 20 20 Rate Blood Pressure 113/76 112/61 [Left] O2 Sat by Pulse 20 L 99 Oximetry - General physical appearance well developed, well nourished - Respiratory normal respiratory effort - Abdomen soft, tender (appropriately), bowel sounds hypoactive - Integumentary no rash, no growths, no abnormal pigmentation - Neurologic normal coordination, normal sensation - Psychiatric oriented to time, oriented to person, oriented to place, speech is normal, memory intact - Labs 04/14/17 19:56
[2017-04-15] MEDS ORDERED: Fluarix Quad 2017-2018(36 MOS+ IM ONE (12:00)
[2017-04-15] MEDS: PRENATAL VITAMIN PO SCH (13:17)
[2017-04-15] MEDS: NORCO 5/325 PO PRN ×2 (13:17→19:12)
[2017-04-15] MEDS: MOTRIN PO PRN ×2 (13:18→19:11)
[2017-04-16] MEDS: MOTRIN PO PRN ×2 (01:44→09:41)
[2017-04-16] MEDS: NORCO 5/325 PO PRN ×2 (01:44→09:11)
--- NOTE | 2017-04-16 08:27 | Discharge Summary ---
Providers - Providers Date of Admission: 04/14/17 05:43 Date of discharge: 04/16/17 Attending physician: AUBRIE CARBAJAL 04/14/17 12:10 Consult to Splash Line Operator [CONS] Routine Reason For Exam: Primary care physician: AUBRIE CARBAJAL Hospitalization Reason for admission: section Delivery: Procedure: section, bilateral tubal ligation, repeat low transverse Incision: normal, dry, intact Other procedures: none complications: none Discharge diagnosis: IUP at term delivered baby: female Hospital course: Patient was admitted and underwent above procedure without complications. Her post operative course was benign she was afebrile throughout. Patient postoperative day 1 hematocrit was in an acceptable range. Patient had no orthostatic symptoms. Patient was tolerating regular diet and voiding without difficulty at time of discharge. Patient incision was healing well without evidence of infection. Patient is bottle and breast-feeding. Condition at discharge: Good Disposition: [id number] TO HOME OR SELFCARE - Discharge Diagnoses (1) Maternal care due to uterine scar from other previous surgery Status: Resolved (2) Encounter for sterilization Status: Chronic (3) Keloid scar Status: Chronic (4) delivery delivered Status: Chronic Plan - Discharge Medications Prescriptions: Ferrous Sulfate [Feosol 325 MG tab] 325 mg PO BID #60 tablet Ibuprofen [Motrin 800 MG tab] 800 mg PO Q6H PRN #30 tablet PRN Reason: Pain oxyCODONE /ACETAMINOPHEN [Percocet 5/325 mg] 1 - 2 tab PO Q4H PRN #30 tablet PRN Reason: Pain, Moderate - Provider Discharge Summary Activity: routine, no sex for 6 weeks, no heavy lifting 4 weeks, no strenuous exercise Diet: routine Instructions: routine Additional instructions: [] Smoking cessation referral if applicable(refer to patient education folder for contact #) [] Refer to [facility] Booklet Call your doctor immediately for: * Fever > 100.5 * Heavy vaginal bleeding ( >1 pad per hour) * Severe persistent headache * Shortness of breath * Reddened, hot, painful area to leg or breast * Drainage or odor from incision. * Keep incision clean and dry at all times and follow doctor's instructions regarding bathing/showering Patient to keep scheduled postoperative visit - Follow up plan Follow up: AUBRIE CARBAJAL MD [Primary Care Provider] - 7 Days
[2017-04-16] MEDS: PRENATAL VITAMIN PO SCH (09:11)
[2017-04-16 13:23] VITALS: BP 111/63
== END 2017-04-16 10:10 | disposition home or self-care (01) | DRG 766 ==
LOC: APU 05:43 → OB 10:48
PROVIDERS: ADMIT Obstetrics & Gynecology; ATTEND Obstetrics & Gynecology
PROC: 10D00Z1 Extraction of Products of Conception, Low, Open Approach (ICD-10-PCS; principal; 2017-04-14)
PROC: 0UT70ZZ Resection of Bilateral Fallopian Tubes, Open Approach (ICD-10-PCS; 2017-04-14)
PROC: 3E0234Z Introduction of Serum, Toxoid and Vaccine into Muscle, Percutaneous Approach (ICD-10-PCS; 2017-04-15)
DX: O34.211 Maternal care for low transverse scar from previous cesarean delivery (principal); O75.89 Other specified complications of labor and delivery; N85.8 Other specified noninflammatory disorders of uterus; L91.0 Hypertrophic scar; Z3A.38 38 weeks gestation of pregnancy; Z30.2 Encounter for sterilization; Z23 Encounter for immunization; Z37.0 Single live birth
CPT/HCPCS: 36415; 85014; 85018; 85025; 86850; 86900; 86901; 88302; 90471; 90715; 99211; G0463; J0690; J1885; J2270; J2370; J2405; J2590; J2765; J7120; J7121